=== PATIENT | female | born 1940 | race Caucasian/White ===

== ENCOUNTER 2017-10-13 10:09 | Emergency (ER) | payer MEDICARE, MEDICAID ==
[~2017-10-13 10:09] MED LIST: ASPI-231 PO; DEXA4TAB PO; DOCU100T15 PO; DOXE25CA2 PO; DULO20CA PO; FER325T PO; FERR-20 PO; FLUT27.52; FURO20TA PO; GABA300C10 PO; GLIM2TAB33 PO; HYDR500T13 PO; LEVO112T4 PO; LORA-622 PO; LORA-654 PO; LOS50T PO; METF-370 PO; METO-169 PO; NAS17NSL; ONDA8TAB6 PO; SITA100T7 PO; TIOTCAP AD; [UNRECOGNIZED DRUG - CODE] SC
[2017-10-14] MEDS ORDERED: INSLANTI SC ×2 (17:50)
== END 2017-10-13 10:28 | disposition left against medical advice (07) ==
LOC: ER 10:09
DX: M79.605 Pain in left leg (principal); M79.604 Pain in right leg; Z53.21 Procedure and treatment not carried out due to patient leaving prior to being seen by health care provider

== ENCOUNTER 2017-10-14 09:30 | Inpatient (IN) | payer MEDICARE, MEDICAID ==
[~2017-10-14] VITALS: Ht 162.6 cm; Wt 105.6 kg
[2017-10-14 17:17] LABS: Basophils # (auto) 0 uL; Basophils % (auto) 0.3 % (0.0-2.0); Eosinophils # (auto) 0.1 uL; Eosinophils % (auto) 0.8 % (0.0-7.0); Hematocrit 33.1 % (36.0-46.0); Hemoglobin 10.8 g/dL (12.2-16.2); Lymphocytes # (auto) 2.1 uL; Mean Corpuscular Hemoglobin 29.2 pg (28.0-32.0); Mean Corpuscular Hgb Conc. 32.5 g/dL (32.0-36.0); Mean Corpuscular Volume 89.9 fL (80.0-100.0); Monocytes # (auto) 0.7 uL; Monocytes % (auto) 7.1 % (0.0-12.0); Neutrophils # (auto) 7.1 uL; Neutrophils % (auto) 70.8 % (37.0-80.0); Platelet Count (auto) 254 10^3/uL (140-450); Red Blood Cells 3.69 10^6/uL (4.0-5.20); Red Cell Distribution Width 15.8 % (11.8-14.3)
[2017-10-14 17:30] LABS: INR 0.98 (0.9-1.15); Partial Thromboplastin Time 25.6 sec (22.64-33.71); Prothrombin Time 10.7 sec (9.37-12.3)
[2017-10-14 17:40] LABS: Alanine Aminotransferase 11 U/L (13-56); Albumin 2.3 g/dL (3.4-5.0); Alkaline Phosphatase 58 U/L (45-117); Anion Gap 8 (5-15); Aspartate Aminotransferase 9 U/L (15-37); BUN/Creatinine Ratio 23.9; Bilirubin, Total 0.3 mg/dL (0.2-1.0); Blood Alcohol < 3.0 mg/dL (0-5); Blood Urea Nitrogen 51 mg/dL (7-18); Calcium 7.8 mg/dL (8.5-10.1); Carbon Dioxide 29 mmol/L (21-32); Chloride 98 mmol/L (98-107); GFR African American 29 mL/min; GFR Non-African American 24 mL/min; Glucose 108 mg/dL (74-106); Magnesium 2.6 mg/dL (1.6-2.6); Potassium 4.3 mmol/L (3.5-5.1); Sodium 135 mmol/L (136-145); Total Protein 7.9 g/dL (6.4-8.2)
[2017-10-14 17:46] LABS: Urine Bacteria MOD /hpf (None Seen); Urine Blood 1+ /uL (Negative); Urine Hyaline Cast FEW /lpf (0 - 2); Urine WBC 345 /hpf (0 - 5); Urine WBC Clumps PRESENT /hpf (None Seen)
[2017-10-14] MEDS ORDERED: INSLANTI SC ×2 (17:50)
[2017-10-15] MEDS ORDERED: MORPHINE SULFATE 4 MG/ML SYR/VIAL IV PRN (03:15)
[2017-10-15] MEDS ORDERED: NITROGLYCERIN 0.4 MG SL TAB SL PRN (03:15)
[2017-10-15] MEDS ORDERED: CLINDAMYCIN 600MG IV 50 ML IV ONE (04:00)
[2017-10-15] MEDS ORDERED: DEXTROSE (50%) 50ML SYRG IV PRN (04:30)
[2017-10-15] MEDS ORDERED: DOCUSATE SOD 100 MG CAP PO PRN (04:30)
[2017-10-15 04:43] VITALS: BP 153/68
[2017-10-15] MEDS: LEVOTHYROXINE SODIUM 100 MCG TAB PO SCH (06:33)
[2017-10-15] MEDS: ACCU-CHEK COMFORT CURVE STRIP VI SCH ×4 (06:33→22:09)
[2017-10-15] MEDS: GABAPENTIN 300 MG CAP PO SCH ×3 (06:33→22:02)
[2017-10-15] MEDS: InsuLIN REG 1unit/0.01ml Soln (100units/ml) SC SCH ×4 (06:33→22:09)
[2017-10-15] MEDS: ALBUTEROL SULF 2.5 MG/0.5ML(0.5%) NEB SOLN NEB SCH ×3 (06:40→18:55)
[2017-10-15] MEDS: IPRATROPIUM BROM 0.5 MG/2.5ML INH SOL NEB SCH ×3 (06:40→18:55)
[2017-10-15 09:08] LABS: Basophils # (auto) 0 uL; Basophils % (auto) 0.4 % (0.0-2.0); Eosinophils # (auto) 0.2 uL; Eosinophils % (auto) 2.3 % (0.0-7.0); Hematocrit 32.6 % (36.0-46.0); Hemoglobin 10.4 g/dL (12.2-16.2); Lymphocytes # (auto) 1.8 uL; Lymphocytes % (auto) 20.8 % (10.0-50.0); Mean Corpuscular Hemoglobin 28.8 pg (28.0-32.0); Mean Corpuscular Hgb Conc. 32.1 g/dL (32.0-36.0); Mean Corpuscular Volume 89.8 fL (80.0-100.0); Monocytes # (auto) 0.8 uL; Monocytes % (auto) 8.8 % (0.0-12.0); Neutrophils # (auto) 5.8 uL; Neutrophils % (auto) 67.7 % (37.0-80.0); Platelet Count (auto) 248 10^3/uL (140-450); Red Blood Cells 3.63 10^6/uL (4.0-5.20); Red Cell Distribution Width 15.9 % (11.8-14.3); White Blood Cell 8.6 10^3/uL (4.4-10.8)
[2017-10-15 09:29] LABS: BUN/Creatinine Ratio 26.3; Calcium 8.1 mg/dL (8.5-10.1); Potassium 4.3 mmol/L (3.5-5.1)
[2017-10-15] MEDS: LOSARTAN POTASSIUM 50 MG TAB PO SCH (10:26)
[2017-10-15] MEDS: DULoxetine HCL 30 MG CAP PO SCH ×2 (10:26→22:02)
[2017-10-15] MEDS: ASPirin-EC 81 mg tab PO SCH (10:26)
[2017-10-15] MEDS: METOPROLOL SUCCINATE XL 50 MG TAB PO SCH (10:26)
[2017-10-15] MEDS: FUROSEMIDE 40 MG/4 ML VIAL IV SCH (10:26)
[2017-10-15 13:21] VITALS: BP 148/70
[2017-10-15] MEDS: CLINDAMYCIN 600MG IV 50 ML IV SCH ×2 (13:55→22:03)
[2017-10-15 17:04] LABS: Urine Bacteria MOD /hpf (None Seen); Urine Blood TRACE /uL (Negative); Urine Hyaline Cast FEW /lpf (0 - 2); Urine Mucus FEW (None Seen); Urine WBC 483 /hpf (0 - 5); Urine WBC Clumps PRESENT /hpf (None Seen)
[2017-10-15 17:19] VITALS: BP 104/57
[2017-10-15] MEDS: Boost Glucose Control 8 Ounces PO SCH (18:18)
[2017-10-15 21:54] VITALS: BP 134/38
[2017-10-15] MEDS: INSULIN DETEMIR(LEVEMIR) 1unit/0.01ml Soln (100units/ml) SC SCH (22:10)
[2017-10-16] VITALS (7 sets, daily range): BP systolic 119–162; BP diastolic 54–79
[2017-10-16] MEDS: IPRATROPIUM BROM 0.5 MG/2.5ML INH SOL NEB SCH ×4 (00:07→18:49)
[2017-10-16] MEDS: ALBUTEROL SULF 2.5 MG/0.5ML(0.5%) NEB SOLN NEB SCH ×3 (00:07→11:14)
[2017-10-16 05:27] LABS: Basophils # (auto) 0 uL; Basophils % (auto) 0.3 % (0.0-2.0); Eosinophils # (auto) 0.1 uL; Hematocrit 30.3 % (36.0-46.0); Lymphocytes # (auto) 1.7 uL; Lymphocytes % (auto) 19.9 % (10.0-50.0); Mean Corpuscular Hemoglobin 29.6 pg (28.0-32.0); Mean Corpuscular Volume 89.7 fL (80.0-100.0); Monocytes # (auto) 0.9 uL; Monocytes % (auto) 10.1 % (0.0-12.0); Neutrophils # (auto) 5.8 uL; Neutrophils % (auto) 68.7 % (37.0-80.0); Platelet Count (auto) 244 10^3/uL (140-450); Red Blood Cells 3.37 10^6/uL (4.0-5.20); Red Cell Distribution Width 15.8 % (11.8-14.3); White Blood Cell 8.5 10^3/uL (4.4-10.8)
[2017-10-16 05:47] LABS: Albumin 2.1 g/dL (3.4-5.0); BUN/Creatinine Ratio 29.9; Bilirubin, Total 0.3 mg/dL (0.2-1.0); Calcium 7.9 mg/dL (8.5-10.1); Potassium 4.4 mmol/L (3.5-5.1); Total Protein 7.5 g/dL (6.4-8.2)
[2017-10-16] MEDS: GABAPENTIN 300 MG CAP PO SCH ×3 (06:18→21:28)
[2017-10-16] MEDS: CLINDAMYCIN 600MG IV 50 ML IV SCH ×3 (06:18→21:24)
[2017-10-16] MEDS: LEVOTHYROXINE SODIUM 100 MCG TAB PO SCH (06:36)
[2017-10-16] MEDS: InsuLIN REG 1unit/0.01ml Soln (100units/ml) SC SCH ×4 (06:36→21:30)
[2017-10-16] MEDS: ACCU-CHEK COMFORT CURVE STRIP VI SCH ×4 (06:36→21:31)
[2017-10-16] MEDS: Boost Glucose Control 8 Ounces PO SCH ×3 (09:01→18:00)
[2017-10-16] MEDS: ASPirin-EC 81 mg tab PO SCH (10:07)
[2017-10-16] MEDS: FUROSEMIDE 40 MG/4 ML VIAL IV SCH (10:07)
[2017-10-16] MEDS: LEVOFLOXACIN 250MG 50 ML IV SCH (10:07)
[2017-10-16] MEDS: DULoxetine HCL 30 MG CAP PO SCH ×2 (10:07→21:28)
[2017-10-16] MEDS: METOPROLOL SUCCINATE XL 50 MG TAB PO SCH (10:08)
[2017-10-16] MEDS: LOSARTAN POTASSIUM 50 MG TAB PO SCH (10:09)
[2017-10-16] MEDS ORDERED: METOPROLOL TARTRATE 50 MG TAB PO ONE (14:30)
[2017-10-16] MEDS ORDERED: AMIODARONE HCL 150 MG in D5W 5% 100 ML IV ONE (15:00)
[2017-10-16] MEDS ORDERED: AMIODARONE HCL 900 MG in DEXTROSE 500 ML IV SCH ×2 (15:06→21:06)
[2017-10-16] MEDS: ONDANSETRON HCL 4 MG/2 ML VIAL IV PRN (18:05)
[2017-10-16] MEDS: APIXABAN 5 MG TAB PO SCH (21:27)
[2017-10-16] MEDS: METOPROLOL TARTRATE 50 MG TAB PO SCH ×2 (21:28→21:31)
[2017-10-16] MEDS: HYDROcodone-ACET 5/325MG TAB PO PRN (21:28)
[2017-10-16] MEDS: INSULIN DETEMIR(LEVEMIR) 1unit/0.01ml Soln (100units/ml) SC SCH (21:31)
[2017-10-17] VITALS: BP 117/62
[2017-10-17] MEDS: IPRATROPIUM BROM 0.5 MG/2.5ML INH SOL NEB SCH ×4 (00:29→20:50)
[2017-10-17 04:00] VITALS: BP 126/54
[2017-10-17 05:10] LABS: Basophils # (auto) 0.1 uL; Basophils % (auto) 0.6 % (0.0-2.0); Eosinophils # (auto) 0.2 uL; Eosinophils % (auto) 2.8 % (0.0-7.0); Hematocrit 32.6 % (36.0-46.0); Hemoglobin 10.7 g/dL (12.2-16.2); Lymphocytes # (auto) 1.8 uL; Lymphocytes % (auto) 20.6 % (10.0-50.0); Mean Corpuscular Hgb Conc. 32.8 g/dL (32.0-36.0); Mean Corpuscular Volume 88.5 fL (80.0-100.0); Monocytes # (auto) 0.9 uL; Monocytes % (auto) 10.5 % (0.0-12.0); Neutrophils # (auto) 5.6 uL; Neutrophils % (auto) 65.5 % (37.0-80.0); Platelet Count (auto) 243 10^3/uL (140-450); Red Blood Cells 3.68 10^6/uL (4.0-5.20); Red Cell Distribution Width 15.6 % (11.8-14.3); White Blood Cell 8.5 10^3/uL (4.4-10.8)
[2017-10-17 05:26] LABS: BUN/Creatinine Ratio 27.3; Potassium 4.8 mmol/L (3.5-5.1)
[2017-10-17] MEDS: InsuLIN REG 1unit/0.01ml Soln (100units/ml) SC SCH ×4 (06:41→22:13)
[2017-10-17] MEDS: CLINDAMYCIN 600MG IV 50 ML IV SCH ×3 (06:48→22:11)
[2017-10-17] MEDS: GABAPENTIN 300 MG CAP PO SCH ×3 (06:48→22:13)
[2017-10-17] MEDS: ACCU-CHEK COMFORT CURVE STRIP VI SCH ×4 (06:49→22:13)
[2017-10-17] MEDS: LEVOTHYROXINE SODIUM 100 MCG TAB PO SCH (06:49)
[2017-10-17] MEDS: Boost Glucose Control 8 Ounces PO SCH ×2 (08:00→12:00)
[2017-10-17] MEDS: DULoxetine HCL 30 MG CAP PO SCH ×2 (09:31→22:12)
[2017-10-17] MEDS: FUROSEMIDE 40 MG/4 ML VIAL IV SCH (09:32)
[2017-10-17] MEDS: APIXABAN 5 MG TAB PO SCH ×2 (09:32→22:12)
[2017-10-17] MEDS: LOSARTAN POTASSIUM 50 MG TAB PO SCH (09:32)
[2017-10-17] MEDS: LEVOFLOXACIN 250MG 50 ML IV SCH (09:32)
[2017-10-17] MEDS: METOPROLOL TARTRATE 50 MG TAB PO SCH ×2 (09:33→22:12)
[2017-10-17] MEDS ORDERED: METOPROLOL TARTRATE 50 MG TAB PO SCH (10:00)
[2017-10-17] MEDS: AMIODARONE HCL 200 MG TAB PO SCH ×2 (11:39→22:12)
[2017-10-17 11:52] VITALS: BP 115/42
[2017-10-17] MEDS ORDERED: cefTRIAXone 1GM/10ml IVPUSH 10 ML IV ONE (14:45)
[2017-10-17 15:50] VITALS: BP 123/70
[2017-10-17 22:00] VITALS: BP 150/60
[2017-10-17] MEDS: INSULIN DETEMIR(LEVEMIR) 1unit/0.01ml Soln (100units/ml) SC SCH (22:13)
[2017-10-18 06:00] VITALS: BP 139/53
[2017-10-18] MEDS: IPRATROPIUM BROM 0.5 MG/2.5ML INH SOL NEB SCH ×4 (06:18→17:45)
[2017-10-18] MEDS: GABAPENTIN 300 MG CAP PO SCH ×3 (06:24→21:44)
[2017-10-18] MEDS: ACCU-CHEK COMFORT CURVE STRIP VI SCH ×4 (06:24→21:59)
[2017-10-18] MEDS: CLINDAMYCIN 600MG IV 50 ML IV SCH ×3 (06:24→21:43)
[2017-10-18] MEDS: InsuLIN REG 1unit/0.01ml Soln (100units/ml) SC SCH ×4 (06:25→22:30)
[2017-10-18] MEDS: LEVOTHYROXINE SODIUM 100 MCG TAB PO SCH (06:25)
[2017-10-18 06:33] LABS: Basophils # (auto) 0 uL; Basophils % (auto) 0.4 % (0.0-2.0); Eosinophils # (auto) 0.2 uL; Eosinophils % (auto) 2.2 % (0.0-7.0); Hematocrit 30.3 % (36.0-46.0); Hemoglobin 9.8 g/dL (12.2-16.2); Lymphocytes # (auto) 1.9 uL; Lymphocytes % (auto) 18.8 % (10.0-50.0); Mean Corpuscular Hemoglobin 29.7 pg (28.0-32.0); Mean Corpuscular Hgb Conc. 32.3 g/dL (32.0-36.0); Monocytes # (auto) 0.9 uL; Monocytes % (auto) 9.1 % (0.0-12.0); Neutrophils % (auto) 69.5 % (37.0-80.0); Platelet Count (auto) 242 10^3/uL (140-450); Red Blood Cells 3.29 10^6/uL (4.0-5.20); Red Cell Distribution Width 15.9 % (11.8-14.3)
[2017-10-18 06:52] LABS: Albumin 1.9 g/dL (3.4-5.0); Bilirubin, Total 0.2 mg/dL (0.2-1.0); Calcium 7.9 mg/dL (8.5-10.1); Potassium 4.9 mmol/L (3.5-5.1); Total Protein 7.2 g/dL (6.4-8.2)
[2017-10-18 08:58] VITALS: BP 139/53
[2017-10-18 09:00] VITALS: BP 161/33
[2017-10-18] MEDS: Boost Glucose Control 8 Ounces PO SCH ×4 (09:00→18:45)
[2017-10-18] MEDS: cefTRIAXone 1GM/10ml IVPUSH 10 ML IV SCH (09:00)
[2017-10-18] MEDS: FUROSEMIDE 40 MG/4 ML VIAL IV SCH (09:51)
[2017-10-18] MEDS: DULoxetine HCL 30 MG CAP PO SCH ×2 (09:52→21:44)
[2017-10-18] MEDS: METOPROLOL TARTRATE 50 MG TAB PO SCH ×2 (09:57→21:44)
[2017-10-18] MEDS: AMIODARONE HCL 200 MG TAB PO SCH ×2 (09:58→21:43)
[2017-10-18] MEDS: APIXABAN 5 MG TAB PO SCH ×2 (09:58→21:43)
[2017-10-18] MEDS: LOSARTAN POTASSIUM 50 MG TAB PO SCH (09:58)
[2017-10-18 13:11] VITALS: BP 119/42
[2017-10-18] MEDS: ONDANSETRON HCL 4 MG/2 ML VIAL IV PRN (13:56)
[2017-10-18] MEDS: HYDROcodone-ACET 5/325MG TAB PO PRN (15:22)
[2017-10-18 17:00] VITALS: BP 115/34
[2017-10-18] MEDS: ACETAMINOPHEN 500 MG TAB PO PRN (17:07)
[2017-10-18] MEDS: PRO-STAT 64 30ML PO SCH (18:45)
[2017-10-18 22:00] VITALS: BP 125/53
[2017-10-18] MEDS: INSULIN DETEMIR(LEVEMIR) 1unit/0.01ml Soln (100units/ml) SC SCH (22:31)
[2017-10-19] MEDS: IPRATROPIUM BROM 0.5 MG/2.5ML INH SOL NEB SCH ×4 (01:18→18:37)
[2017-10-19 05:10] VITALS: BP 90/48
[2017-10-19] MEDS: InsuLIN REG 1unit/0.01ml Soln (100units/ml) SC SCH ×4 (06:35→22:25)
[2017-10-19] MEDS: ACCU-CHEK COMFORT CURVE STRIP VI SCH ×4 (06:35→22:24)
[2017-10-19] MEDS: GABAPENTIN 300 MG CAP PO SCH ×3 (06:35→22:24)
[2017-10-19] MEDS: LEVOTHYROXINE SODIUM 100 MCG TAB PO SCH (06:35)
[2017-10-19] MEDS: CLINDAMYCIN 600MG IV 50 ML IV SCH ×3 (06:35→22:23)
[2017-10-19 09:00] VITALS: BP 118/64
[2017-10-19] MEDS: METOPROLOL TARTRATE 50 MG TAB PO SCH ×2 (10:26→22:24)
[2017-10-19] MEDS: FUROSEMIDE 40 MG/4 ML VIAL IV SCH (10:27)
[2017-10-19] MEDS: AMIODARONE HCL 200 MG TAB PO SCH ×2 (10:27→22:23)
[2017-10-19] MEDS: LOSARTAN POTASSIUM 50 MG TAB PO SCH (10:27)
[2017-10-19] MEDS: DULoxetine HCL 30 MG CAP PO SCH ×2 (10:28→22:24)
[2017-10-19] MEDS: Boost Glucose Control 8 Ounces PO SCH ×3 (10:28→18:04)
[2017-10-19] MEDS: cefTRIAXone 1GM/10ml IVPUSH 10 ML IV SCH (10:28)
[2017-10-19] MEDS: PRO-STAT 64 30ML PO SCH ×2 (10:28→18:04)
[2017-10-19] MEDS ORDERED: AZITHROMYCIN 500MG/ 250ML 250 ML IV ONE (11:15)
[2017-10-19 13:00] VITALS: BP 172/72
[2017-10-19] MEDS: HYDROcodone-ACET 5/325MG TAB PO PRN (16:25)
[2017-10-19] MEDS: APIXABAN 5 MG TAB PO SCH ×2 (16:45→22:24)
[2017-10-19 16:55] VITALS: BP 139/49
[2017-10-19] MEDS: INSULIN DETEMIR(LEVEMIR) 1unit/0.01ml Soln (100units/ml) SC SCH (22:26)
[2017-10-19 23:27] VITALS: BP 128/59
[2017-10-20] MEDS: IPRATROPIUM BROM 0.5 MG/2.5ML INH SOL NEB SCH ×4 (00:15→19:43)
[2017-10-20 04:40] VITALS: BP 130/59
[2017-10-20] MEDS: GABAPENTIN 300 MG CAP PO SCH ×3 (06:15→22:44)
[2017-10-20] MEDS: CLINDAMYCIN 600MG IV 50 ML IV SCH ×3 (06:15→22:42)
[2017-10-20] MEDS: LEVOTHYROXINE SODIUM 100 MCG TAB PO SCH (06:19)
[2017-10-20] MEDS: ACCU-CHEK COMFORT CURVE STRIP VI SCH ×4 (06:19→22:44)
[2017-10-20] MEDS: InsuLIN REG 1unit/0.01ml Soln (100units/ml) SC SCH ×4 (06:20→22:00)
[2017-10-20 08:43] VITALS: BP 121/38
[2017-10-20] MEDS: Boost Glucose Control 8 Ounces PO SCH ×3 (10:54→17:50)
[2017-10-20] MEDS: PRO-STAT 64 30ML PO SCH ×2 (10:54→17:50)
[2017-10-20] MEDS: cefTRIAXone 1GM/10ml IVPUSH 10 ML IV SCH (10:54)
[2017-10-20] MEDS: FUROSEMIDE 40 MG/4 ML VIAL IV SCH (10:55)
[2017-10-20] MEDS: AZITHROMYCIN 500MG/ 250ML 250 ML IV SCH (10:55)
[2017-10-20] MEDS: AMIODARONE HCL 200 MG TAB PO SCH ×2 (10:56→22:42)
[2017-10-20] MEDS: DULoxetine HCL 30 MG CAP PO SCH ×2 (10:56→22:43)
[2017-10-20] MEDS: LOSARTAN POTASSIUM 50 MG TAB PO SCH (10:56)
[2017-10-20] MEDS: APIXABAN 5 MG TAB PO SCH ×2 (10:57→22:43)
[2017-10-20] MEDS: ACETAMINOPHEN 500 MG TAB PO PRN (10:57)
[2017-10-20] MEDS: METOPROLOL TARTRATE 50 MG TAB PO SCH ×2 (10:57→22:00)
[2017-10-20 11:53] VITALS: BP 149/61
[2017-10-20] MEDS: HYDROcodone-ACET 5/325MG TAB PO PRN ×2 (12:15→16:19)
[2017-10-20 16:28] VITALS: BP 106/55
[2017-10-20 17:07] VITALS: BP 149/61
[2017-10-20 22:00] VITALS: BP 111/67
[2017-10-20] MEDS: INSULIN DETEMIR(LEVEMIR) 1unit/0.01ml Soln (100units/ml) SC SCH (22:00)
[2017-10-21] MEDS: IPRATROPIUM BROM 0.5 MG/2.5ML INH SOL NEB SCH ×3 (01:06→12:36)
[2017-10-21 05:11] VITALS: BP 114/41
[2017-10-21 05:48] LABS: Basophils # (auto) 0.1 uL; Basophils % (auto) 0.8 % (0.0-2.0); Eosinophils # (auto) 0.3 uL; Eosinophils % (auto) 3.8 % (0.0-7.0); Hematocrit 28.4 % (36.0-46.0); Hemoglobin 9.2 g/dL (12.2-16.2); Lymphocytes # (auto) 1.6 uL; Lymphocytes % (auto) 23.3 % (10.0-50.0); Mean Corpuscular Hemoglobin 29.2 pg (28.0-32.0); Mean Corpuscular Hgb Conc. 32.3 g/dL (32.0-36.0); Mean Corpuscular Volume 90.6 fL (80.0-100.0); Monocytes # (auto) 0.8 uL; Monocytes % (auto) 10.8 % (0.0-12.0); Neutrophils # (auto) 4.3 uL; Neutrophils % (auto) 61.3 % (37.0-80.0); Nucleated Red Blood Cells % 0.1 %; Platelet Count (auto) 229 10^3/uL (140-450); Red Blood Cells 3.14 10^6/uL (4.0-5.20); Red Cell Distribution Width 15.5 % (11.8-14.3)
[2017-10-21 06:08] LABS: BUN/Creatinine Ratio 34.8; Potassium 4.7 mmol/L (3.5-5.1)
[2017-10-21] MEDS: GABAPENTIN 300 MG CAP PO SCH ×2 (06:24→14:48)
[2017-10-21] MEDS: LEVOTHYROXINE SODIUM 100 MCG TAB PO SCH (06:24)
[2017-10-21] MEDS: CLINDAMYCIN 600MG IV 50 ML IV SCH ×2 (06:24→14:47)
[2017-10-21] MEDS: ACCU-CHEK COMFORT CURVE STRIP VI SCH ×2 (06:25→14:47)
[2017-10-21] MEDS: InsuLIN REG 1unit/0.01ml Soln (100units/ml) SC SCH ×2 (06:25→14:47)
[2017-10-21 08:56] VITALS: BP 96/48
[2017-10-21] MEDS: Boost Glucose Control 8 Ounces PO SCH ×2 (08:58→14:47)
[2017-10-21] MEDS: cefTRIAXone 1GM/10ml IVPUSH 10 ML IV SCH (08:59)
[2017-10-21] MEDS: PRO-STAT 64 30ML PO SCH (08:59)
[2017-10-21] MEDS: FUROSEMIDE 40 MG/4 ML VIAL IV SCH (09:00)
[2017-10-21] MEDS: METOPROLOL TARTRATE 50 MG TAB PO SCH (09:01)
[2017-10-21] MEDS: DULoxetine HCL 30 MG CAP PO SCH (09:02)
[2017-10-21] MEDS: LOSARTAN POTASSIUM 50 MG TAB PO SCH (09:02)
[2017-10-21] MEDS: APIXABAN 5 MG TAB PO SCH (09:02)
[2017-10-21] MEDS: AMIODARONE HCL 200 MG TAB PO SCH (09:02)
[2017-10-21] MEDS: AZITHROMYCIN 500MG/ 250ML 250 ML IV SCH (09:03)
[2017-10-21 13:00] VITALS: BP 100/50
[2017-10-21 13:04] VITALS: BP 96/48
== END 2017-10-21 17:00 | DRG 871 ==
LOC: EDBD 09:30 → ER 09:41 → TELE 09:42 → TELE-WESTW 10-15 13:04 → DOU IN ICU 10-16 23:06 → TELE-CENTR 10-17 18:13
PROVIDERS: ADMIT Nurse Practitioner Family; ATTEND Internal Medicine Pulmonary Disease
DX: A41.9 Sepsis, unspecified organism (principal); I50.43 Acute on chronic combined systolic (congestive) and diastolic (congestive) heart failure; E43 Unspecified severe protein-calorie malnutrition; G93.41 Metabolic encephalopathy; J18.9 Pneumonia, unspecified organism; D68.69 Other thrombophilia; E11.21 Type 2 diabetes mellitus with diabetic nephropathy; E11.22 Type 2 diabetes mellitus with diabetic chronic kidney disease; E11.65 Type 2 diabetes mellitus with hyperglycemia; E87.1 Hypo-osmolality and hyponatremia; L03.115 Cellulitis of right lower limb; I13.0 Hypertensive heart and chronic kidney disease with heart failure and stage 1 through stage 4 chronic kidney disease, or unspecified chronic kidney disease; L03.116 Cellulitis of left lower limb; I48.92 Unspecified atrial flutter; J44.0 Chronic obstructive pulmonary disease with (acute) lower respiratory infection; N18.4 Chronic kidney disease, stage 4 (severe); N39.0 Urinary tract infection, site not specified; Z68.41 Body mass index [BMI] 40.0-44.9, adult; I48.91 Unspecified atrial fibrillation; D50.8 Other iron deficiency anemias; E66.01 Morbid (severe) obesity due to excess calories; E78.5 Hyperlipidemia, unspecified; F32.9 Major depressive disorder, single episode, unspecified; F41.9 Anxiety disorder, unspecified; Z79.4 Long term (current) use of insulin; Z79.82 Long term (current) use of aspirin; Z79.899 Other long term (current) drug therapy; Z85.43 Personal history of malignant neoplasm of ovary; Z87.440 Personal history of urinary (tract) infections; Z90.49 Acquired absence of other specified parts of digestive tract
CPT/HCPCS: 36415; 51702; 71010; 71045; 80048; 80053; 80320; 81001; 82962; 83036; 83605; 83735; 83880; 84443; 84484; 85025; 85610; 85730; 87040; 87081; 87086; 87088; 87186; 93005; 93970; 94640; 94761; 96374; 96375; 97110; 97116; 97163; 97530; J1815; J2405; J3490; J7060